=== PATIENT | female | born 1995 | race American Indian/Alaskan Native ===

== ENCOUNTER 2018-06-10 17:00 | Emergency (ER) | payer BC ==
[2018-06-10] MEDS ORDERED: NORCO 5/325 PO ONE (20:29)
[2018-06-10] MEDS ORDERED: FUL-GLO OP ONE (20:36)
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
[2018-06-10 23:17] VITALS: BP 124/62
== END 2018-06-10 23:16 | disposition home or self-care (01) ==
LOC: ED 17:00
DX: S00.11XA Contusion of right eyelid and periocular area, initial encounter (principal); W22.8XXA Striking against or struck by other objects, initial encounter; Y93.89 Activity, other specified; Y92.89 Other specified places as the place of occurrence of the external cause; Y99.8 Other external cause status
CPT/HCPCS: 70450; 70486